=== PATIENT | male | born 1990 | race Caucasian/White ===

== ENCOUNTER 2016-10-03 22:43 | Emergency (ER) | payer SELFPAY ==
[~2016-10-03] VITALS: Ht 185.4 cm; Wt 81.6 kg
[2016-10-03 22:55] VITALS: BP 122/73
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
[2016-10-03] MEDS ORDERED: IBUPROFEN600 MG ORAL (23:09)
[2016-10-03] MEDS ORDERED: Bacitracin Oint UD TOPIC ONE (23:15)
[2016-10-03 23:40] VITALS: BP 122/73
== END 2016-10-03 23:42 ==
LOC: EMR 22:59
DX: S80.02XA Contusion of left knee, initial encounter (principal); S09.90XA Unspecified injury of head, initial encounter; S00.83XA Contusion of other part of head, initial encounter; W50.3XXA Accidental bite by another person, initial encounter; Y04.0XXA Assault by unarmed brawl or fight, initial encounter; H92.02 Otalgia, left ear; Z86.19 Personal history of other infectious and parasitic diseases; F17.200 Nicotine dependence, unspecified, uncomplicated
CPT/HCPCS: 99283